=== PATIENT | male | born 1960 | race Caucasian/White ===

== ENCOUNTER 2020-10-14 11:41 | Emergency (ER) | payer OTHER ==
--- NOTE | 2020-10-14 14:48 | RAD REPORT ---
EXAM DESCRIPTION: RAD - Hip Right 2 View - 10/14/2020 2:41 pm CLINICAL HISTORY: Right hip pain FINDINGS: Nondisplaced fracture involves the greater trochanter right femur which extends inter troc hanteric and lesser trochanter. The fracture extends into the subtrochanteric region and is mildly to moderately displaced. Right hip prosthesis in place. No dislocation
--- NOTE | 2020-10-14 14:49 | RAD REPORT ---
EXAM DESCRIPTION: RAD - Lumbar Spine 3 Views - 10/14/2020 2:41 pm CLINICAL HISTORY: Back pain FINDINGS: The bones are osteoporotic. Old moderate compression fracture involves the L1 vertebral body. No acute fracture or dislocation
--- NOTE | 2020-10-14 18:00 | ER ---
Nurse's Notes [facility] Name: Abel Munoz Age: 60 yrs Sex: Male : 1960 Arrival Date: 10/14/2020 Time: 11:52 Bed 15 Private MD: Diagnosis: Right hip fracture: Nondisplaced fracture involving greater trochanter of right femur. 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 ll1 Fell back onto his back. No head injury. Pain down R hip and leg since. Dr. Kidd wanted him in for eval. Coronavirus screen: Client denies travel out of the [place] in the last 14 days. At this time, the client does not indicate any symptoms associated with coronavirus-19. Ebola Screen: Patient denies travel to an Ebola-affected area in the 21 days before illness onset. Initial Sepsis Screen: Does the patient meet any 2 criteria? No. Patient's initial sepsis screen is negative. Does the patient have a suspected source of infection? Yes: Bone or joint infection. Risk Assessment: Do you want to hurt yourself or someone else? Patient reports no desire to harm self or others. Onset of symptoms was October 13, 2020. 12:42 Method Of Arrival: Wheelchair ll1 12:42 Acuity: RENEE 3 ll1 Historical: - Allergies: 18:49 Morphine; vg1 - Home Meds: 17:35 Augmentin 500-125 mg Oral tab [Active]; Bactroban Topical [Active]; Probiotic oral oral vg1 [Active]; Hydrochlorothiazide Oral [Active]; Tramadol Oral [Active]; atorvastatin oral oral [Active]; losartan oral oral [Active]; Folic Acid Oral [Active]; - PMHx: 12:46 Hypertension; COPD; High Cholesterol; ll1 - PSHx: 12:46 bilateral hip replacements; ll1 - Immunization history:: Client reports having NOT received the Covid vaccine. Last tetanus immunization: up to date Pneumococcal vaccine is up to date, Flu vaccine is up to date. - Social history:: Smoking status: Patient reports the use of cigarette tobacco products, smokes one pack cigarettes per day. Screenin:29 Abuse screen: Denies threats or abuse. Nutritional screening: No deficits noted. vg1 Tuberculosis screening: No symptoms or risk factors identified. Fall Risk Fall in past 12 months (25 points). No secondary diagnosis (0 pts). No IV (0 pts). Ambulatory Aid- Crutches/Cane/Walker (15 pts). Gait- Impaired (20 pts.). Mental Status- Oriented to own ability (0 pts). Total Gabriel Fall Scale indicates High Risk Score (45 or more points). Fall prevention measures have been instituted. Side Rails Up X 2 Placed Close to Nursing Station Family Present and informed to notify staff if the need to leave the bedside. Assessment: 17:15 General: Appears in no apparent distress. comfortable, Behavior is calm, cooperative. vg1 Pain: Complains of pain in Right hip and right side of lower back Pain currently is 1 out of 10 on a pain scale. at worst was 8 out of 10 on a pain scale. Alleviated by rest, Aggravated by repositioning, weight bearing. Neuro: Level of Consciousness is awake, alert, obeys commands, Oriented to person, place, time, situation. Cardiovascular: Patient's skin is warm and dry. Respiratory: Airway is patent Respiratory effort is even, unlabored. GI: No signs and/or symptoms were reported involving the gastrointestinal system. : No signs and/or symptoms were reported regarding the genitourinary system. EENT: No signs and/or symptoms were reported regarding the EENT system. Derm: Skin is pink, warm \T\ dry. Reports Staph infection below the left knee; stated has been seeing wound care. Site without drainage, no redness, dressing clean and intact. Musculoskeletal: Range of motion: limited in right hip. 18:50 Reassessment: Patient appears in no apparent distress at this time. No changes from vg1 previously documented assessment. Patient and/or family updated on plan of care and expected duration. Pain level reassessed. Patient is alert, oriented x 3, equal unlabored respirations, skin warm/dry/pink. Vital Signs: 12:42 BP 124 / 67; Pulse 75; Resp 17; Temp 97.7; Pulse Ox 100% ; Weight 81.65 kg; Height 6 ll1 ft. 0 in. (182.88 cm); Pain 10/10; 17:29 BP 131 / 79; Pulse 85; Resp 16; Pulse Ox 100% on R/A; vg1 18:49 BP 130 / 65; Pulse 85; Resp 16; Pulse Ox 100% on R/A; vg1 20:54 BP 135 / 83; Pulse 80; Resp 16; Temp 98.2; Pulse Ox 99% on R/A; vg1 12:42 Body Mass Index 24.41 (81.65 kg, 182.88 cm) ll1 Maynor Coma Score: 17:31 Eye Response: spontaneous(4). Verbal Response: oriented(5). Motor Response: obeys vg1 commands(6). Total: 15. ED Course: 11:52 Patient arrived in ED. mr 12:45 Triage completed. ll1 12:47 Arm band placed on. ll1 14:37 Hip Right 2 View XRAY In Process Unspecified. EDMS 14:37 Lumbar Spine (3 Views) XRAY In Process Unspecified. EDMS 16:56 Regina Saucedo, ROD is Primary Nurse. vg1 16:57 Manjit Orta NP is PHCP. pm1 16:57 Radames Calvo MD is Attending Physician. pm1 17:30 Patient has correct armband on for positive identification. Bed in low position. Call vg1 light in reach. Side rails up X2. Adult w/ patient. 17:30 Warm blanket given. lunchroom monitor on. Pulse ox on. NIBP on. mh5 17:30 Patient maintains SpO2 saturation greater than 95% on room air. vg1 18:08 initiated transfer to [facility], was informed by transfer center that they bd cant do hip reconstruction at [facility]. 18:13 Initial lab(s) drawn, by mt, sent to lab. Inserted saline lock: 20 gauge in right vg1 antecubital area, using aseptic technique. Blood collected. 18:16 initiated transfer to [facility]. bd 18:18 pt denied due to all [facility] campuses being on sturation. per Huang. bd 18:21 initiated transfer to [facility]. bd 18:38 pt accepted in transfer by [facility] by dr Wyatt Elizondo, admin approval given by kip Valero. 19:08 No provider procedures requiring assistance completed. Patient transferred, IV remains vg1 in place. 20:56 Flushed right antecubital with 5 ml normal saline. vg1 Administered Medications: 19:57 Drug: NS 0.9% 1000 ml Route: IV; Rate: 100 ml/hr; Site: right antecubital; vg1 20:44 Follow up: IV Status: Infusion continued upon transfer vg1 20:53 Drug: traMADol 50 mg Route: PO; vg1 20:53 Follow up: Response: Medication administered at discharge. vg1 Outcome: 17:59 ER care complete, transfer ordered by MD. pm1 19:08 Transferred by ground EMS to [facility]. vg1 19:08 Condition: stable 19:08 Instructed on the need for transfer. 20:57 Patient left the ED. vg1 Signatures: Dispatcher [employer] EDMS Isaura Peng Mary mr MichelleManjit cunningham, MOTORCYCLE POLICE MOTORCYCLE POLICE pm1 Jenniffer Kearney Victoria, RN RN vg1 Ravinder Hitchcock RN RN ll1 Corrections: (The following items were deleted from the chart) 18:19 18:17 pt denied due to all [facility] campuses being on saturation. bd bd 18:49 12:46 Allergies: No Known Allergies; ll1 vg1
--- NOTE | 2020-10-14 18:00 | EDPHYS ---
Physician Documentation [facility] Name: Abel Munoz Age: 60 yrs Sex: Male : 1960 Arrival Date: 10/14/2020 Time: 11:52 Bed 15 Private MD: ED Physician Radames Calvo HPI: 10/14 17:28 This 60 yrs old Male presents to ER via Wheelchair with complaints of Fall pm1 Injury. 17:28 Details of fall: The patient fell from an upright position, while walking, and struck a pm1 concrete surface. Onset: The symptoms/episode began/occurred yesterday. Associated injuries: The patient sustained right hip. Severity of symptoms: in the emergency department the symptoms are unchanged. The patient has not experienced similar symptoms in the past. The patient has not recently seen a physician. 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 No head injury, headache, neck pain, LOC. Patient normally walks without any assistance. Since the fall he has been using a walker and barely applying weight on his right leg. Patient's bilateral hips have been replaced about 11 years ago out of town. Orthopedic surgeon who performed the surgery already retired. 17:35 Has been taking antibiotics for wound on left proximal antoine. Wound present for three pm1 weeks and is being treated by wound care. Organism is staph. Initially treated with Cipro and is now taking Augmentin. Historical: - Allergies: 18:49 Morphine; vg1 - Home Meds: 17:35 Augmentin 500-125 mg Oral tab [Active]; Bactroban Topical [Active]; Probiotic oral oral vg1 [Active]; Hydrochlorothiazide Oral [Active]; Tramadol Oral [Active]; atorvastatin oral oral [Active]; losartan oral oral [Active]; Folic Acid Oral [Active]; - PMHx: 12:46 Hypertension; COPD; High Cholesterol; ll1 - PSHx: 12:46 bilateral hip replacements; ll1 - Immunization history:: Client reports having NOT received the Covid vaccine. Last tetanus immunization: up to date Pneumococcal vaccine is up to date, Flu vaccine is up to date. - Social history:: Smoking status: Patient reports the use of cigarette tobacco products, smokes one pack cigarettes per day. ROS: 17:28 Constitutional: Negative for fever, chills, and weight loss, Neck: Negative for injury, pm1 pain, and swelling, Cardiovascular: Negative for chest pain, palpitations, and edema, Respiratory: Negative for shortness of breath, cough, wheezing, and pleuritic chest pain, Abdomen/GI: Negative for abdominal pain, nausea, vomiting, diarrhea, and constipation. 17:28 Skin: Negative for injury, rash, and discoloration, Neuro: Negative for headache, weakness, numbness, tingling, and seizure. 17:28 Back: Positive for of the low back area, Pain. 17:28 MS/extremity: Positive for pain, of the right hip, Negative for deformity. Exam: 17:28 Constitutional: This is a well developed, well nourished patient who is awake, alert, pm1 and in no acute distress. Head/Face: Normocephalic, atraumatic. 17:28 Chest/axilla: Normal chest wall appearance and motion. Nontender with no deformity. No lesions are appreciated. 17:28 Back: No spinal tenderness. No costovertebral tenderness. Full range of motion. Skin: Warm, dry with normal turgor. Normal color with no rashes, no lesions, and no evidence of cellulitis. 17:28 Neck: External neck: is normal, no tenderness, no acute changes, ROM/movement: is normal, is supple, without pain, no range of motions limitations. 17:28 Cardiovascular: Exam negative for acute changes, Rate: normal, Rhythm: regular, Pulses: no pulse deficits are appreciated, Heart sounds: normal, normal S1and S2. 17:28 Respiratory: Exam negative for acute changes, respiratory distress, shortness of breath, Breath sounds: are clear throughout. 17:28 Abdomen/GI: Exam negative for acute changes, Inspection: abdomen appears normal, Palpation: abdomen is soft and non-tender, in all quadrants. 17:28 Musculoskeletal/extremity: Extremities: grossly normal except: noted in the right hip: tenderness, Circulation is intact in all extremities. Pulses: noted to be 1+ in the right dorsalis pedis artery and left dorsalis pedis artery, brisk capillary refill on toe nails without fungal growth, the right leg and left leg Sensation intact. 17:28 Neuro: Exam negative for acute changes, Orientation: is normal, Mentation: is normal, Motor: is normal, moves all fours. 17:36 Skin: Appearance: normal except for affected area, 3cm x 2cm ulceration present to pm1 proximal left antoine without any drainage, redness, or surrounding cellulitis . Vital Signs: 12:42 BP 124 / 67; Pulse 75; Resp 17; Temp 97.7; Pulse Ox 100% ; Weight 81.65 kg; Height 6 ll1 ft. 0 in. (182.88 cm); Pain 10/10; 17:29 BP 131 / 79; Pulse 85; Resp 16; Pulse Ox 100% on R/A; vg1 18:49 BP 130 / 65; Pulse 85; Resp 16; Pulse Ox 100% on R/A; vg1 20:54 BP 135 / 83; Pulse 80; Resp 16; Temp 98.2; Pulse Ox 99% on R/A; vg1 12:42 Body Mass Index 24.41 (81.65 kg, 182.88 cm) ll1 Maynor Coma Score: 17:31 Eye Response: spontaneous(4). Verbal Response: oriented(5). Motor Response: obeys vg1 commands(6). Total: 15. MDM: 16:57 Patient medically screened. pm1 17:30 ED course: Patient offered pain medications on multiple occasions and he refused. pm1 17:41 Physician consultation: Myles Love MD was called at 17:41, was contacted at 17:41, pm1 regarding consult, patient's condition, after a discussion of the case, a recommendation for transfer for higher level of care is made, He evaluated the x-rays and determined that she needs transfer for higher level of care. The patient needs a reconstruction specialist due to right hip prosthesis . 17:49 Counseling: I had a detailed discussion with the patient and/or guardian regarding: the pm1 historical points, exam findings, and any diagnostic results supporting the discharge/admit diagnosis, radiology results, the need to transfer to another facility, for higher level of care, [facility] does not immediately have the required specialist. 17:50 ED course: Patient preference to transfer to [facility] if available in that order due to driving limitation of . 18:50 Data reviewed: vital signs. Data interpreted: Pulse oximetry: on room air is 100 %. pm1 Interpretation: normal. 10/14 17:26 Order name: CBC with Diff pm1 10/14 17:26 Order name: CMP pm1 10/14 17:26 Order name: PT-INR pm1 10/14 17:28 Order name: CBC with Automated Diff; Complete Time: 19:17 EDMS 10/14 17:28 Order name: Comprehensive Metabolic Panel; Complete Time: 19:17 EDMS 10/14 17:28 Order name: Protime (+INR); Complete Time: 19:17 EDMS 10/14 13:56 Order name: Hip Right 2 View XRAY; Complete Time: 17:14 tw4 10/14 14:21 Order name: Lumbar Spine (3 Views) XRAY; Complete Time: 17:14 tw4 10/14 17:26 Order name: IV Saline Lock; Complete Time: 18:12 pm1 10/14 17:26 Order name: EKG; Complete Time: 17:28 pm1 10/14 19:30 Order name: Urine Dipstick-Ancillary; Complete Time: 20:40 EDMS 10/14 17:26 Order name: EKG - Nurse/Tech; Complete Time: 17:30 pm1 Administered Medications: 19:57 Drug: NS 0.9% 1000 ml Route: IV; Rate: 100 ml/hr; Site: right antecubital; vg1 20:44 Follow up: IV Status: Infusion continued upon transfer vg1 20:53 Drug: traMADol 50 mg Route: PO; vg1 20:53 Follow up: Response: Medication administered at discharge. vg1 Disposition: 10/14/20 17:59 Transfer ordered to [facility]. Diagnosis are Right hip fracture: Nondisplaced fracture involving greater trochanter of right femur. Displaced fracture in the subtrochanteric region, Fall on same level, unspecified. - Reason for transfer: Higher level of care. - Accepting physician is Wyatt Elizondo MD. - Condition is Stable. - Problem is new. - Symptoms have improved. Addendum: 10/16/2020 10:06 Co-signature as Attending Physician, Radames Calvo MD I agree with the assessment and t w4 plan of care. Signatures: Dispatcher [employer] EDNV Manjit Orta, SAND SCREENER OPERATOR SAND SCREENER OPERATOR pm1 Radames Calvo MD MD tw4 Regina Saucedo RN RN vg1 Ravinder Hitchcock RN RN ll1 Corrections: (The following items were deleted from the chart) 04 14:22 13:56 Knee Right 3 View+RAD.RAD.BRZ ordered. EDMS EDMS 18:39 17:59 10/14/2020 17:59 Transfer ordered to Other Acute Care Facility. Diagnosis is pm1 Right hip fracture. Reason for transfer: Higher level of care. Accepting physician is MD. Condition is Stable. Problem is new. Symptoms have improved. pm1 18:42 18:39 10/14/2020 17:59 Transfer ordered to [facility]. Diagnosis is Right pm1 hip fracture. Reason for transfer: Higher level of care. Accepting physician is Wyatt Elizondo MD. Condition is Stable. Problem is new. Symptoms have improved. pm1 18:49 12:46 Allergies: No Known Allergies; [place] [id number] 19:03 17:28 Musculoskeletal/extremity: Extremities: grossly normal except: noted in the right pm1 hip: tenderness, Circulation is intact in all extremities. Pulses: noted to be 2+ in the right dorsalis pedis artery and left dorsalis pedis artery, the right leg and left leg Sensation intact. pm1 20:57 18:42 10/14/2020 17:59 Transfer ordered to [facility]. Diagnosis is Right vg1 hip fracture: Nondisplaced fracture involving greater trochanter of right femur. Displaced fracture in the subtrochanteric region; Fall on same level, unspecified. Reason for transfer: Higher level of care. Accepting physician is Wyatt Elizondo MD. Condition is Stable. Problem is new. Symptoms have improved. pm1
[2020-10-14 18:21] LABS: Absolute Lymphocytes (CBC) 2.2 K/uL (0.7-4.9); Basophils % 0.6 % (0-1.3); Hematocrit 35.1 % (39.6-49.0); Lymphocytes % 19.5 % (15.3-44.8); MPV 8.1 fL (7.6-11.3); RBC Red Blood Cell Count 3.63 M/uL (4.33-5.43)
[2020-10-14 18:27] LABS: Protime INR 0.97
[2020-10-14 18:37] LABS: ALT/SGPT 27 U/L (12-78); AST/SGOT 14 U/L (15-37); Albumin 3.3 g/dL (3.4-5.0); Alkaline Phosphatase 111 U/L (45-117); BUN Blood Urea Nitrogen 13 mg/dL (7-18); Bicarbonate 25 mmol/L (21-32); Bilirubin Total 0.7 mg/dL (0.2-1.0); Glucose Level 104 mg/dL (74-106); Potassium 3.4 mmol/L (3.5-5.1); Protein, Total 7.3 g/dL (6.4-8.2); Sodium Level 131 mmol/L (136-145)
[2020-10-14 19:31] LABS: Urine Blood Trace-intact (Negative); Urine Glucose Negative (Negative); Urine Protein Negative (Negative); Urine Specific Gravity 1.015 (1.005-1.030)
[2020-10-14] MEDS ORDERED: NA CHLORIDE 0.9% 1,000 ML ONE (20:04)
[2020-10-14 21:06] VITALS: BP 135/83; TEMP 98.2; O2SAT 99
[2020-10-14] MEDS ORDERED: TRAMADOL HCL 50 MG TAB ONE (21:09)
--- NOTE | 2020-10-15 09:06 | PN ---
Date of Progress Note: 10/07/2020 The patient returns for evaluation of the left knee ulceration which measures 2.2 x 3.2 x 0.1, basica lly unchanged. There are still some foreign body type lesions present in the wound with some fibrin. This was removed using sharp and blunt dissection. In view of the x-ray revealing unknown calcific ations and some unusual surrounding finding, it was felt that the patient should be referred to an or thopedic surgeon for possible exploration of the knee joint. He was to continue on his Augmentin, Zo mercedez and continue Bactroban, foam, roll gauze and 4-inch Coban. He will return to clinic depending o n what the orthopedic surgeon decides. HR/MODL Voice ID: [id number] Report ID: [id number]
--- NOTE | 2020-10-15 09:07 | PN ---
Date of Progress Note: 10/03/2020 The patient was referred to Wound Clinic by his PCP, who felt that the wound of the knee in anterior surface was not healing for unknown reasons. Evaluation revealed some cartilage like mate rial and the area was excised using a curette. Bleeding was moderate, controlled by pressure. It wa s tolerated. An x-ray was ordered. He was placed on Cipro 500 mg and the tissue was sent for pathol ogical evaluation. The patient generally has been in good health. He has had hip replacement in the past. He is to return to clinic in 5 days after the x-ray is taken for further evaluation. HR/MODL Voice ID: [id number] Report ID: [id number]
--- NOTE | 2020-10-15 09:07 | PN ---
The patient is referred to Wound Clinic for evaluation of persistent left knee wound measuring 2.3 x 3.2 x 0.1 cm. The patient had a history of a BKA approximately 4 months ago and was re-referred to [facility] in [place]. However, location is more convenient here, he came here. He is being fo llowed by the [place]. The patient has a long history of hypertension and hyperlipidemia and diabetes. Casper barr is also nicotine dependent. It was felt that the area was somewhat cellulitic. He was afebrile. The wound was debrided using a curette down to the subcutaneous tissue. Bleeding was moderate, contr olled by pressure. There was no evidence of any abscess formation. He was placed on Cipro 500 mg. Tissue culture was taken. Bactroban was recommended for the wound. He will return in 5 days for amari luation of the cellulitis. HR/MODL Voice ID: [id number] Report ID: [id number]
--- NOTE | 2020-10-15 12:15 | EKG ---
Test Date: 2020-10-14 Test Time: 17:56:03 Record Librarian: BENJI MEASUREMENT RESULTS: Intervals: Rate: 77 KS: 210 QRSD: 82 QT: 370 QTc: 418 [place]: P: 71 KS: 210 QRS: 66 T: 68 INTERPRETIVE STATEMENTS: Sinus rhythm with 1st degree AV block Otherwise normal ECG No previous ECG available for comparison Electronically Signed On 10-15-20 12:13:25 CDT by Wicho Erwin
== END 2020-10-14 20:57 | disposition short-term general hospital (02) ==
LOC: ER 11:41
DX: M97.01XA Periprosthetic fracture around internal prosthetic right hip joint, initial encounter (principal); S72.114A Nondisplaced fracture of greater trochanter of right femur, initial encounter for closed fracture; S72.21XA Displaced subtrochanteric fracture of right femur, initial encounter for closed fracture; L97.829 Non-pressure chronic ulcer of other part of left lower leg with unspecified severity; W18.39XA Other fall on same level, initial encounter; Y93.89 Activity, other specified; Y92.89 Other specified places as the place of occurrence of the external cause; Z88.5 Allergy status to narcotic agent; I10 Essential (primary) hypertension; E78.00 Pure hypercholesterolemia, unspecified; J44.9 Chronic obstructive pulmonary disease, unspecified; F17.210 Nicotine dependence, cigarettes, uncomplicated
CPT/HCPCS: 85025; 36415; 85610; 81003; 80053; 72100; 73502; J7030; 93005; 96360; 99285